=== PATIENT | female | born 1990 | race African-American/Black ===

== ENCOUNTER 2023-02-26 03:30 | Inpatient (IN) | payer OTHER ==
[2023-02-26 04:31] VITALS: BMI 33.1
[2023-02-26] MEDS ORDERED: CITRIC ACID/SODIUM CITRATE 30 ML UNIT-DOSE CUP PO ONE (04:34)
[2023-02-26 04:37] LABS: BASO % 0.5 % (0-2.0); EOS % 0.4 % (0-4.5); HEMATOCRIT 39.4 % (32.4-45.2); HEMOGLOBIN 13.2 GM/dL (10.7-15.3); LYMPH % 28.3 % (8-40); MCH 27.1 pg (25.7-33.7); MCHC 33.5 g/dl (32.0-36.0); MEAN PLT VOLUME 9.3 fl (7.5-11.1); NEUT % 61.8 % (42.8-82.8); PLATELET COUNT 188 10^3/uL (134-434); RBC 4.86 M/mm3 (3.60-5.2); RDW 19.2 % (11.6-15.6); WHITE BLOOD COUNT 7.6 K/mm3 (4.0-10.0)
[2023-02-26] MEDS ORDERED: ELECTROLYTE-148 SOLN 1,000 ML IV SCH (04:45)
[2023-02-26 05:14] LABS: POTASSIUM 4.1 mmol/L (3.5-5.1)
[2023-02-26 05:16] LABS: BLOOD UREA NITROGEN 9.3 mg/dL (7-18); CALCIUM 10.2 mg/dL (8.5-10.1)
[2023-02-26 05:20] LABS: CREATININE 0.7 mg/dL (0.55-1.3)
[2023-02-26 05:44] LABS: INR 0.93 (0.83-1.09); PROTHROMBIN TIME (PATIENT) 10.8 SEC (9.7-13.0)
[2023-02-26 05:47] LABS: ACTIVATED PTT 26.5 SECONDS (25.2-36.5)
[2023-02-26 08:47] LABS: METHADONE, UR NEGATIVE (NEGATIVE); PHENCYCLIDINE,URINE NEGATIVE (NEGATIVE); URINE AMPHETAMINES NEGATIVE (NEGATIVE)
[2023-02-26 08:48] LABS: OPIATES, URI NEGATIVE (NEGATIVE); URINE BARBITURATES NEGATIVE (NEGATIVE)
[2023-02-26 08:49] LABS: COCAINE, UR NEGATIVE (NEGATIVE); URINE BENZODIAZEPINES NEGATIVE (NEGATIVE)
[2023-02-26] MEDS ORDERED: morphine SULFATE/PF 1 MG/2 ML (2cc Syringe - QUVA) EP ONE (08:52)
[2023-02-26] MEDS ORDERED: ACETAMINOPHEN 325 MG TABLET (FP) PO PRN ×2 (08:52→09:19)
[2023-02-26] MEDS ORDERED: ONDANSETRON 4 MG/2 ML VIAL IVPUSH PRN (08:52)
[2023-02-26] MEDS ORDERED: IBUPROFEN 600 MG TABLET (FP) PO PRN (08:52)
[2023-02-26] MEDS ORDERED: SODIUM CHLORIDE 0.9% P/F 10 ML VIAL IJ ONE (09:00)
[2023-02-26] MEDS ORDERED: ceFAZolin SODIUM 1 GM VIAL ONE (09:00)
[2023-02-26] MEDS ORDERED: METHYLERGONOVINE MALEATE 0.2 MG/1 ML AMP IM PRN (09:19)
[2023-02-26] MEDS ORDERED: PHENYLEPHRINE HCL 10 MG/1 ML SINGLE DOSE VIAL ONE (09:21)
[2023-02-26] MEDS ORDERED: OXYTOCIN 10 UNITS/ML VIAL ONE ×2 (09:33→09:38)
[2023-02-26] MEDS ORDERED: ONDANSETRON 4 MG/2 ML VIAL ONE (09:41)
[2023-02-26] MEDS: OXYTOCIN 20 UNITS in 0.9% NS 20 UNIT/1,000 ML INFUS.BAG IV SCH ×2 (10:36→21:28)
[2023-02-26] MEDS ORDERED: OXYTOCIN 20 UNITS in 0.9% NS 20 UNIT/1,000 ML INFUS.BAG IV ONE (10:36)
[2023-02-26] MEDS ORDERED: IBUPROFEN 800 MG/8 ML IJ IVPB ONE (12:06)
[2023-02-26] MEDS: IBUPROFEN 800 MG/8 ML IJ IVPB PRN ×2 (12:25→21:25)
[2023-02-26 14:23] LABS: POC NITRAZINE POS
[2023-02-27 06:21] LABS: BASO % 0.3 % (0-2.0); EOS % 0.1 % (0-4.5); HEMATOCRIT 22.1 % (32.4-45.2); HEMOGLOBIN 7.1 GM/dL (10.7-15.3); LYMPH % 16.8 % (8-40); MCH 26.9 pg (25.7-33.7); MCHC 32.2 g/dl (32.0-36.0); MEAN CELL VOLUME 83.5 fl (80-96); MONO % 8.1 % (3.8-10.2); NEUT % 74.7 % (42.8-82.8); PLATELET COUNT 144 10^3/uL (134-434); RBC 2.64 M/mm3 (3.60-5.2); RDW 19.1 % (11.6-15.6); WHITE BLOOD COUNT 9.2 K/mm3 (4.0-10.0)
[2023-02-27] MEDS: FERROUS SO4 325 MG TABLET (FP) PO SCH (11:02)
[2023-02-27] MEDS: SIMETHICONE 80 MG TAB.CHEW (FP) PO PRN ×3 (11:12→20:23)
[2023-02-27] MEDS: oxyCODONE HCL 5 MG TABLET PO PRN ×3 (11:12→20:23)
[2023-02-27] MEDS: IBUPROFEN 600 MG TABLET (FP) PO PRN (13:38)
[2023-02-27] MEDS: OXYTOCIN 20 UNITS in 0.9% NS 20 UNIT/1,000 ML INFUS.BAG IV SCH (18:46)
[2023-02-27 20:56] VITALS: RESP 18
[2023-02-28] MEDS: IBUPROFEN 600 MG TABLET (FP) PO PRN ×4 (03:25→22:34)
[2023-02-28] MEDS: SIMETHICONE 80 MG TAB.CHEW (FP) PO PRN ×3 (03:25→19:32)
[2023-02-28 07:31] LABS: BASO % 0.2 % (0-2.0); EOS % 0.1 % (0-4.5); HEMATOCRIT 18.5 % (32.4-45.2); LYMPH % 16.4 % (8-40); MCH 26.9 pg (25.7-33.7); MCHC 32.2 g/dl (32.0-36.0); MEAN CELL VOLUME 83.5 fl (80-96); MONO % 8.5 % (3.8-10.2); NEUT % 74.8 % (42.8-82.8); PLATELET COUNT 157 10^3/uL (134-434); RBC 2.21 M/mm3 (3.60-5.2); RDW 19.1 % (11.6-15.6); WHITE BLOOD COUNT 11.3 K/mm3 (4.0-10.0)
[2023-02-28 07:53] LABS: HEMOGLOBIN 5.9 GM/dL (10.7-15.3)
[2023-02-28] MEDS: FERROUS SO4 325 MG TABLET (FP) PO SCH (11:09)
[2023-02-28] MEDS: BISACODYL 10 MG SUPP.RECT RC PRN (11:17)
[2023-03-01] MEDS: SIMETHICONE 80 MG TAB.CHEW (FP) PO PRN ×2 (05:53→12:55)
[2023-03-01] MEDS: IBUPROFEN 600 MG TABLET (FP) PO PRN ×2 (05:53→12:54)
[2023-03-01 09:14] LABS: BASO % 0.5 % (0-2.0); EOS % 0.6 % (0-4.5); HEMOGLOBIN 7.4 GM/dL (10.7-15.3); LYMPH % 19.2 % (8-40); MCH 28.2 pg (25.7-33.7); MCHC 33.5 g/dl (32.0-36.0); MEAN CELL VOLUME 84.3 fl (80-96); MEAN PLT VOLUME 9.2 fl (7.5-11.1); MONO % 8.5 % (3.8-10.2); NEUT % 71.2 % (42.8-82.8); PLATELET COUNT 166 10^3/uL (134-434); RBC 2.61 M/mm3 (3.60-5.2); WHITE BLOOD COUNT 9.4 K/mm3 (4.0-10.0)
[2023-03-01 09:20] VITALS: BP 116/80; PULSE 99; TEMP 98.3
[2023-03-01] MEDS: FERROUS SO4 325 MG TABLET (FP) PO SCH (10:23)
[2023-03-01] MEDS: BISACODYL 10 MG SUPP.RECT RC PRN (12:55)
== END 2023-03-01 14:53 | disposition home or self-care (01) | DRG 540 ==
LOC: JLDR 03:30 → J3W 13:07
PROVIDERS: ADMIT Obstetrics & Gynecology; ATTEND Obstetrics & Gynecology
PROC: 10D00Z1 Extraction of Products of Conception, Low, Open Approach (ICD-10-PCS; principal; 2023-02-26)
PROC: 30233N1 Transfusion of Nonautologous Red Blood Cells into Peripheral Vein, Percutaneous Approach (ICD-10-PCS; 2023-02-28)
DX: O24.429 Gestational diabetes mellitus in childbirth, unspecified control (principal); O36.63X0 Maternal care for excessive fetal growth, third trimester, not applicable or unspecified; O40.3XX0 Polyhydramnios, third trimester, not applicable or unspecified; Z3A.39 39 weeks gestation of pregnancy; Z37.0 Single live birth; O90.81 Anemia of the puerperium
CPT/HCPCS: 36415; 36430; 59025; 80048; 80307; 83986-QW; 85025; 85461; 85610; 85730; 86780; 86850; 86900; 86901; 86922; 88307-TC; 96372; J2790; P9058